=== PATIENT | female | born 1965 | race Caucasian/White ===

== ENCOUNTER 2024-05-06 10:00 | Inpatient (IN) | payer OTHER ==
[~2024-05-06] VITALS: Ht 156.2 cm; Wt 83.3 kg
[2024-05-07 12:22] VITALS: BP 154/85; PULSE 93; RESP 18
[2024-05-07 12:37] LABS: BASOPHILS # (AUTO) 0.06 K/uL (0.00-0.20); BASOPHILS % (AUTO) 1.1 % (0.0-5.0); EOSINOPHILS # (AUTO) 0.16 K/uL (0.00-0.70); EOSINOPHILS % (AUTO) 2.8 % (0.0-8.0); HEMATOCRIT 33.6 % (36-48); IMMATURE GRANULOCYTE ABSOLUTE 0.01 K/uL (0-1); LYMPHOCYTES # (AUTO) 1.4 K/uL (1.0-4.8); MEAN CORPUSCULAR HEMOGLOBIN 26.1 pg (27.0-33.0); MEAN CORPUSCULAR VOLUME 84.4 fL (79-99); MONOCYTES # (AUTO) 0.5 K/uL (0.1-1.0); MONOCYTES % (AUTO) 8.5 % (3.0-13.0); NEUTROPHILS # (AUTO) 3.6 K/uL (1.8-7.7); NEUTROPHILS % (AUTO) 63.4 % (40.0-77.0); PLATELET COUNT (AUTO) 562 K/uL (130-400); RED BLOOD CELL COUNT(AUTO) 3.98 MIL/uL (4.00-5.50); RED CELL DISTRIBUTION WIDTH 15.3 % (11.0-15.5); WHITE BLOOD COUNT (AUTO) 5.6 K/uL (4.8-10.8)
[2024-05-07] MEDS ORDERED: OMEP20CA12 PO (12:49)
[2024-05-07 12:50] LABS: ALBUMIN 3.4 g/dL (3.5-5.0); BILIRUBIN,TOTAL 0.3 mg/dL (0.2-1.0); CREATININE 0.6 mg/dL (0.5-1.0); POTASSIUM 3.8 mmol/L (3.5-5.1); TOTAL PROTEIN, SERUM 7.8 g/dL (6.0-8.3)
[2024-05-07] MEDS ORDERED: FERR325T22 PO (12:50)
[2024-05-07] MEDS ORDERED: AMLO-257 PO (12:50)
[2024-05-07] MEDS ORDERED: LEVO200T5 PO (12:50)
[2024-05-07 12:54] LABS: INR 0.97 (0.85-1.15); PROTHROMBIN TIME 10.5 SEC (9.6-11.6)
[2024-05-07 12:55] LABS: PARTIAL THROMBOPLASTIN TIME 26.2 SEC (26.3-35.5)
[2024-05-11] VITALS (26 sets, daily range): BP systolic 118–177; BP diastolic 71–95; PULSE 92–113; RESP 14–20; O2SAT 95
[2024-05-11] MEDS ORDERED: GLYCOPYRROLATE 0.2 MG/ML 5 ML VIAL ONE (07:06)
[2024-05-11] MEDS ORDERED: proPOFol 10 MG/ML 20ML VIAL IV ONE (07:06)
[2024-05-11] MEDS ORDERED: dexaMETHasone SOD PHOSPHATE 10MG/ML 1ML VIAL ONE (07:06)
[2024-05-11] MEDS ORDERED: LIDOCAINE PF 100MG/5ML (2%) SYRINGE 5ML ONE (07:06)
[2024-05-11] MEDS ORDERED: ONDANSETRON 4MG INJ ONE ×2 (07:06→08:07)
[2024-05-11] MEDS ORDERED: NEOSTIGMINE METHYLSULFATE 1MG/ML IV ONE (07:06)
[2024-05-11] MEDS ORDERED: SUCCINYLCHOLINE CHLORIDE 20 MG/ML 10 ML VIAL ONE (07:07)
[2024-05-11] MEDS ORDERED: MIDAZOLAM HCL 1 MG/ML 2ML VIAL ONE (07:07)
[2024-05-11] MEDS ORDERED: FENTanyl CITRate PF 50 MCG/1 ML 2ML VIAL ONE ×2 (07:07→09:28)
[2024-05-11] MEDS ORDERED: rocuRONium bROMide 10MG/1ML 5ML VL ONE ×2 (07:07→08:11)
[2024-05-11] MEDS ORDERED: PHENYLEPHRINE HCL 10 MG/ML 1ML VIAL IV ONE (07:13)
[2024-05-11] MEDS: LACTATED RINGERS 1000ML 1,000 ML IV ONE (07:21)
[2024-05-11] MEDS: MEROPENEM 1 GM VIAL ONE (07:21)
[2024-05-11] MEDS: INDOCYANINE GREEN 25 MG VIAL IJ ONE ×2 (07:42→09:24)
[2024-05-11] MEDS ORDERED: FENTanyl CITRate PF 50 MCG/1 ML 5ML AMP IV ONE (08:10)
[2024-05-11] MEDS: BUPIvacaine/PF 0.5% 30ML VIAL ONE (08:14)
[2024-05-11] MEDS: LIDOCAINE 1%-EPI 1:100,000 20 ML VIAL ONE (08:14)
[2024-05-11] MEDS ORDERED: ONDANSETRON 4MG INJ IVP PRN (11:00)
[2024-05-11] MEDS ORDERED: INSULIN humuLIN R 100 UNIT/ML 3ML SQ PRN (11:00)
[2024-05-11] MEDS ORDERED: hydroMORPHone 0.5 MG SYG (0.5MG/0.5ML) IVP PRN (11:00)
[2024-05-11] MEDS: ONDANSETRON 4MG INJ ONE (11:13)
[2024-05-11] MEDS: MEPERIDINE-PF 25 MG/ML SYG ONE (11:14)
[2024-05-11] MEDS: LABETALOL 20MG SYG IV ONE (11:33)
[2024-05-11] MEDS: INVANZ 1GM+NS 50ML IVPB 50 ML IV ONE (12:20)
[2024-05-11] MEDS: SUGAMMADEX SODIUM 200 MG/2 ML VIAL IV ONE (12:21)
[2024-05-11] MEDS: acetaMINOPHEN 325 MG TAB PO SCH (12:23)
[2024-05-11] MEDS: LACTATED RINGERS 1000ML 1,000 ML IV SCH (12:24)
[2024-05-11] MEDS: OXYCODONE HCL 5 MG TAB PO PRN (13:13)
[2024-05-11] MEDS: GABAPENTIN 300 MG CAPSULE PO SCH (13:13)
[2024-05-11] MEDS: KETOROLAC 15MG/ML VIAL (15MG/ML) IV ONE (19:30)
[2024-05-11] MEDS: amLODIPine 5 MG TAB PO SCH (19:58)
[2024-05-12] VITALS (8 sets, daily range): BP systolic 119–155; BP diastolic 70–78; PULSE 106–111; RESP 16–18; TEMP 98.2; O2SAT 93–97
[2024-05-12] MEDS: LEVOTHYROXINE 100 MCG TABLET PO SCH (05:55)
[2024-05-12] MEDS: ENOXAPARIN SODIUM 40 MG/0.4 ML SYRINGE SQ SCH (05:56)
[2024-05-12 05:57] LABS: BASOPHILS # (AUTO) 0.01 K/uL (0.00-0.20); BASOPHILS % (AUTO) 0.1 % (0.0-5.0); HEMATOCRIT 31.3 % (36-48); IMMATURE GRANULOCYTE ABSOLUTE 0.05 K/uL (0-1); LYMPHOCYTES # (AUTO) 0.7 K/uL (1.0-4.8); LYMPHOCYTES % (AUTO) 6.6 % (21.0-51.0); MEAN CORPUSCULAR HEMOGLOBIN 26.3 pg (27.0-33.0); MEAN CORPUSCULAR HGB CONC 31.6 g/dL (32.0-36.0); MONOCYTES # (AUTO) 0.8 K/uL (0.1-1.0); MONOCYTES % (AUTO) 6.8 % (3.0-13.0); NEUTROPHILS # (AUTO) 9.7 K/uL (1.8-7.7); NEUTROPHILS % (AUTO) 86.1 % (40.0-77.0); PLATELET COUNT (AUTO) 460 K/uL (130-400); RED BLOOD CELL COUNT(AUTO) 3.77 MIL/uL (4.00-5.50); RED CELL DISTRIBUTION WIDTH 15.4 % (11.0-15.5); WHITE BLOOD COUNT (AUTO) 11.2 K/uL (4.8-10.8)
[2024-05-12 06:10] LABS: CREATININE 0.6 mg/dL (0.5-1.0); POTASSIUM 3.9 mmol/L (3.5-5.1)
[2024-05-12] MEDS: PANTOPRAZOLE 40 MG TAB DR PO SCH (08:34)
[2024-05-13 04:00] VITALS: BP 154/78; PULSE 99; RESP 16
[2024-05-13 04:48] LABS: BASOPHILS # (AUTO) 0.04 K/uL (0.00-0.20); BASOPHILS % (AUTO) 0.4 % (0.0-5.0); EOSINOPHILS # (AUTO) 0.01 K/uL (0.00-0.70); EOSINOPHILS % (AUTO) 0.1 % (0.0-8.0); HEMATOCRIT 33.3 % (36-48); IMMATURE GRANULOCYTE ABSOLUTE 0.04 K/uL (0-1); LYMPHOCYTES # (AUTO) 2.7 K/uL (1.0-4.8); LYMPHOCYTES % (AUTO) 29.7 % (21.0-51.0); MEAN CORPUSCULAR HGB CONC 30.3 g/dL (32.0-36.0); MEAN CORPUSCULAR VOLUME 85.8 fL (79-99); MONOCYTES # (AUTO) 0.7 K/uL (0.1-1.0); MONOCYTES % (AUTO) 7.2 % (3.0-13.0); NEUTROPHILS # (AUTO) 5.6 K/uL (1.8-7.7); NEUTROPHILS % (AUTO) 62.2 % (40.0-77.0); PLATELET COUNT (AUTO) 441 K/uL (130-400); RED BLOOD CELL COUNT(AUTO) 3.88 MIL/uL (4.00-5.50); RED CELL DISTRIBUTION WIDTH 15.7 % (11.0-15.5)
[2024-05-13 05:06] LABS: CREATININE 0.7 mg/dL (0.5-1.0); POTASSIUM 3.2 mmol/L (3.5-5.1)
[2024-05-13 08:00] VITALS: BP 138/76; PULSE 99; RESP 18; O2SAT 93
[2024-05-13] MEDS: KCL 20 MEQ ERTAB PO ONE (10:17)
[2024-05-13 11:55] VITALS: BP 134/76; PULSE 98; RESP 18
== END 2024-05-13 13:05 | disposition home or self-care (01) | DRG 331 ==
LOC: DAHIP 05-11 06:28 → 3AH 05-11 12:00
PROVIDERS: ADMIT Surgery; ATTEND Surgery
PROC: 0DUU07Z Supplement Omentum with Autologous Tissue Substitute, Open Approach (ICD-10-PCS; 2024-05-11)
PROC: 8E0W0CZ Robotic Assisted Procedure of Trunk Region, Open Approach (ICD-10-PCS; 2024-05-11)
PROC: 0DTF0ZZ Resection of Right Large Intestine, Open Approach (ICD-10-PCS; principal; 2024-05-11 07:46)
DX: C18.2 Malignant neoplasm of ascending colon (principal); I10 Essential (primary) hypertension; E03.9 Hypothyroidism, unspecified; E78.5 Hyperlipidemia, unspecified; Z90.710 Acquired absence of both cervix and uterus
CPT/HCPCS: 36415; 80048; 80053; 85025; 85610; 85730; 86850; 86900; 86901; 88309; 93005; A4344; G0378; J0330; J1100; J1335; J1650; J2001; J2175; J2185; J2250; J2371; J2405; J2704; J2710; J3010; J3490; J7120; A4213; A4215; A4221; A4222; A4223; A4600; A4649; A4663; A4930; A6260; G0168; J0665